=== PATIENT | female | born 1985 | race Caucasian/White ===

== ENCOUNTER 2019-11-28 17:30 | Emergency (ER) | payer OTHER, SELFPAY ==
[2019-11-28 17:45] VITALS: BP 98/62; PULSE 75; RESP 18; TEMP 37.4; O2SAT 100
--- NOTE | 2019-11-28 18:02 | ED.URI ---
HPI - URI/Sore Throat General Chief Complaint: Upper Respiratory Infection Stated Complaint: sore throat/fever Time Seen by Provider: 11/28/19 18:02 Source: patient and RN notes reviewed Mode of arrival: ambulatory Limitations: no limitations History of Present Illness HPI Narrative: 34 year old female who presents to [facility] care with complaints of sore throat and fevers for the past 2 days. Patient states that she has had low grade temperature denies any chills or sweats, denies any ear pain, acute cough or any shortness of breath. Patient states that she has felt extra tired today but denies any headaches or body aches. MD elicited complaint: fever (low grade) and sore throat Pertinent past history: other (previous history of strep) Onset (ago): day(s) (2) Consistency: constant Severity: moderate Pain scale (0-10): 6 Description of mucous: clear Able to tolerate fluids by mouth: Yes Exacerbating factors: swallowing Relieving factors: nothing Associated symptoms: fever (low grade), rhinorrhea, nasal congestion and sore throat Treatments prior to arrival: ibuprofen Related Data Home Medications Medication Instructions Recorded Confirmed No Home Medications 11/28/19 11/28/19 Allergies Allergy/AdvReac Type Severity Reaction Status Date / Time No Known Allergies Allergy Verified 11/28/19 17:35 Review of Systems Review of Systems: Narrative: CONSTITUTIONAL: Low-grade fever, chills, or sweats. EYES: Denies visual changes, redness, or discharge. ENT: Reports minimal rhinorrhea, congestion, sore throat, no otalgia. CARDIOVASCULAR: Denies chest pain, palpitations, or edema. RESPIRATORY: Denies cough or dyspnea. GASTROINTESTINAL: Denies abdominal pain, nausea, vomiting, or diarrhea. GENITOURINARY: Denies dysuria or hematuria. SKIN: Denies rash or itching. MUSCULOSKELETAL: Denies back pain, joint pain, or myalgia. NEUROLOGIC: Denies headache, numbness, or weakness. PSYCHIATRIC: Denies anxiety or depression. All systems reviewed & are unremarkable except as noted in HPI and below PMFSH Past Medical History Medical History (Updated 11/28/19 @ 18:20 by Catherine Dimas NP) Depression Strep pharyngitis Social History Social History (Updated 11/28/19 @ 18:20 by Catherine L. Judie, PHYSIOTHERAPY ASSISTANT) Smoking status: Never smoker Living arrangements: with family Gender identity (if verbalized by the patient): Female Comments At time of signature, agree with nursing past medical, social history. There is no relevant family history pertinent to the presenting complaint Exam Narrative: Exam Narrative: GENERAL: Well-appearing, well-nourished, and in no acute distress. HEAD: Normocephalic, atraumatic. EYES: PERRLA and EOMI. ENT: Nares clear, no rhinorrhea or epistaxis. Mucous membranes moist.TM's normal with good light reflex, throat red, no exudate or lesions, no tonsil enlargement. NECK: Supple.no lymphadenopathy CHEST: Clear to auscultation. No respiratory distress.SAO2 100% HEART: Regular rate and rhythm. No murmur heard. Normal peripheral pulses. ABDOMEN: Soft, nontender, nondistended, normal active bowel sounds. EXTREMITIES: Normal range of motion. No edema. SKIN: Warm, dry, no rash. NEURO: No focal deficits. Alert and oriented x3. Course Vital Signs Vital signs: Vital Signs Temperature 37.4 C 11/28/19 17:45 Pulse Rate 75 11/28/19 17:45 Respiratory Rate 18 11/28/19 17:45 Blood Pressure 98/62 L 11/28/19 17:45 Pulse Oximetry 100 11/28/19 17:45 Temperature 37.4 C 11/28/19 17:45 Pulse Rate 75 11/28/19 17:45 Respiratory Rate 18 11/28/19 17:45 Blood Pressure 98/62 L 11/28/19 17:45 Pulse Oximetry 100 11/28/19 17:45 MDM - URI/Sore Throat Differential Diagnosis Differential diagnosis: Likely upper respiratory infection, viral infection and pharyngitis Medical Records Attestation: I reviewed the patient's medical records. Lab Data Attestation: I reviewed the patient's lab results.
== END 2019-11-28 18:17 | disposition home or self-care (01) ==
PROVIDERS: Emergency Provider Registered Nurse
DX: J02.9 Acute pharyngitis, unspecified (principal); J06.9 Acute upper respiratory infection, unspecified
CPT/HCPCS: 87081; 87880; 99213; G0463

== ENCOUNTER 2021-05-21 12:36 | Emergency (ER) | payer OTHER, SELFPAY ==
[2021-05-21 12:51] VITALS: BP 103/59; PULSE 80; RESP 18; TEMP 37.1; O2SAT 98
--- NOTE | 2021-05-21 13:06 | ED.GENADULT ---
HPI - General Adult General Chief complaint: Ear Stated complaint: ear Time Seen by Provider: 05/21/21 13:07 Source: patient and RN notes reviewed Mode of arrival: ambulatory Limitations: no limitations History of Present Illness HPI narrative: 36-year-old female presents with complaints of right otalgia, being clogged, having a sense of fullness, and decreased hearing for the past 7 days. ?Monica reports increasing symptoms over the past 24 hours. [place] oil mixed with water and peroxide without relief. ?Denies swimming or getting water into the ear. ?Denies URI symptoms. ?No high fevers. ?Denies injury to the ear. ?No nasal drainage and congestion. ?Denies nausea, vomiting, tinnitus, and dizziness. ?LMP unknown due to IUD in place. ?Remains active. ?The patient reports she was diagnosed with COVID-01 September 2020. ?The patient reports she is not waiting for the results of a COVID-19 lab test. The patient reports she does not have chills, weakness, or fatigue. ?The patient reports she does not have a new or worsening cough or shortness of breath. ?Denies chest pain. ?The patient reports she does not have any rhinorrhea, congestion, loss of taste or smell, sore throat, abdominal pain, and diarrhea. ?Tolerating po intake well. ?Denies recent traveling. ?Denies concerns for COVID-19 or exposures. ?At this time, the patient is not suspected of having COVID-19. Some parts of this dictation were generated by voice recognition software and may contain typographical and/or grammatical inaccuracies. Related Data Home Medications Medication Instructions Recorded Confirmed ciprofloxacin HCl 500 mg PO BID 05/21/21 05/21/21 Allergies Allergy/AdvReac Type Severity Reaction Status Date / Time No Known Allergies Allergy Verified 05/21/21 13:13 Review of Systems Review of Systems: CONSTITUTIONAL: Denies fever, chills, sweats. EYES: Denies visual changes, redness, discharge. ENT: Denies rhinorrhea, congestion, sore throat, ear drainage, itching. Complains of right otalgia, being clogged, having a sense of fullness, and decreased hearing. CARDIOVASCULAR: Denies chest pain, palpitations, edema. RESPIRATORY: Denies dyspnea, wheezing, cough. GASTROINTESTINAL: Denies abdominal pain, nausea, vomiting, diarrhea. SKIN: Denies rash or itching. MUSCULOSKELETAL: Denies acute back pain, joint pain, or myalgia. NEUROLOGIC: Denies numbness or focal weakness. PSYCHIATRIC: Denies anxiety or depression. All systems reviewed & are unremarkable except as noted in HPI and below PMFSH Past Medical History Medical History (Updated 05/25/21 @ 17:16 by KERRI Rodriguez) COVID-19 08/2020 Depression Strep pharyngitis Surgical History Surgical History (Updated 05/25/21 @ 17:16 by KERRI Rodriguez) No significant past surgical history Family History Family History (Updated 05/25/21 @ 17:16 by KERRI Rodriguez) Daughter Alive and well Mother Alive and well Social History Social History (Updated 05/25/21 @ 17:17 by KERRI Rodriguez) Smoking status: Never smoker Tobacco type: cigarettes Second hand tobacco smoke exposure: No Alcohol intake: current Substance use: never Substance use type: does not use Living arrangements: with family Occupation/Education: occupation Gender identity (if verbalized by the patient): Female Sexual Orientation (if Verbalized by the Patient): Straight or Heterosexual Comments At time of signature, I have reviewed and agree with the nursing past medical, surgical, social, and family history. Please see the nursing chart for further information. There is no relevant family history pertinent to the presenting complaint. Exam Narrative: GENERAL: This is a well-nourished, well-developed patient, in no apparent distress. Talks in full sentences and ambulates with steady gait without dyspnea HEAD: Normocephalic, atraumatic. EYES: PERRL. Sclera clear/white. Vision is gr
== END 2021-05-21 13:38 | disposition home or self-care (01) ==
PROVIDERS: Emergency Provider Nurse Practitioner Family; PCP Internal Medicine
DX: H61.21 Impacted cerumen, right ear (principal)
CPT/HCPCS: 69209; 99212; G0463

== ENCOUNTER → 2022-01-23 01:36 | Outpatient (CLI) | payer OTHER, SELFPAY ==
[2022-01-23 11:18] LABS: SARS-CoV-2 RNA PCR Negative
== END ==
PROVIDERS: PCP Internal Medicine; Visit Provider Obstetrics & Gynecology Gynecologic Oncology
DX: Z01.812 Encounter for preprocedural laboratory examination (principal); Z20.822 Contact with and (suspected) exposure to COVID-19
CPT/HCPCS: C9803; U0003; U0005

== ENCOUNTER 2022-01-23 09:08 | Outpatient (CLI) | payer OTHER, SELFPAY ==
[2022-01-23 09:57] LABS: Hematocrit 40.4 % (37.0-47.0); Hemoglobin 13.2 g/dL (12.0-15.0); Mean Corpuscular HGB Conc 32.7 g/dl (32-36); Mean Corpuscular Volume 91.8 fl (80-100); Mean Platelet Volume 9.8 fl (7.4-10.4); Platelet Count Result 231 k/mm3 (150-375); Red Cell Distribution Width 13.8 % (11.5-14.5); White Blood Count 7.5 K/mm3 (4.5-10.0)
== END 2022-01-23 09:09 | disposition home or self-care (01) ==
LOC: ANHSURGERY 09:13
PROVIDERS: PCP Internal Medicine; Visit Provider Obstetrics & Gynecology Gynecologic Oncology
DX: N92.0 Excessive and frequent menstruation with regular cycle (principal); Z01.818 Encounter for other preprocedural examination
CPT/HCPCS: 36415; 85027; 86850; 86900; 86901

== ENCOUNTER 2022-01-26 00:49 | Day surgery (SDC) | payer OTHER, SELFPAY ==
[2022-01-22 12:00] VITALS: BMI 21.1
--- NOTE | 2022-01-22 12:09 | PC.NURSE ---
Report to the Outpatient Waiting Room, entrance under the green pavilion located off [facility], at time 10:00 on date 01/26/22. OR Time: 12:00. - You and your visitor will be asked a series of questions to screen for COVID 19 for your protection. - A mask is required within the hospital. One visitor will be allowed to accompany the patient into the hospital. Patients visitor will be instructed to remain with patient at all times or leave the building. We will allow the visitor to come back to the postoperative area when patient is ready. Preoperative COVID Testing Requirements: COVID TEST 01/23 AT 9:10 No COVID Test needed if: (proof is required; if not received patient will have Rapid Test prior to entry) - Patient has received COVID Vaccine at least 14 days prior to procedure date or - Patient has positive COVID test result within last 90 days of surgery date. COVID Test needed if above criteria is not met If not COVID vaccinated a COVID test must be conducted within 72 hours of surgery and patient is asked to isolate self from time of testing until procedure. You will go to the [facility] for your COVID testing. The [facility] site is located at the corner of [address] [facility]. You will only be called if COVID results are positive and your surgeon may reschedule your elective surgery date. Patients may have clear liquids (water, carbonated beverages, clear teas, apple juice) until 3 hours prior to surgery (9:00) with a maximum of 20 ounces. - No food from midnight until time of surgery Take the following medications with a SIP of water the morning of surgery: BUPROPION Medications to discontinue per physician: N/A Date to take last dose: N/A Please no make-up, nail wallisian, hairspray, perfume, deodorant, or body powder the day of surgery. No jewelry (including any body piercings) or valuables the day of surgery, leave them at home. Please take a shower or bath the night before, or the morning of, surgery with an antibacterial soap. Wear comfortable, loose fitting clothing. - Jewelry must be removed prior to entering the operating room. Rings and piercings that are not removed may be cut off. - The hospital will not accept responsibility for valuables. - Please leave all valuables, including medications, at home the day of surgery. If you are going home after surgery, a licensed power screwdriver operator must drive you home. - NO public transportation without another adult. - We recommend that an adult stay with you for 24 hours following discharge. - We also recommend that you do not drive, make important decision, drink alcoholic beverages, or take any drugs that were not prescribed by your health care provider for at least 24 hours after your discharge time. Follow any additional instructions given to you from your surgeon. Telephone instructions given to KHOI HACKETT and asked if any additional questions and then verbalized understanding. Patient advised to call surgeon office or pre surgery nurse liaison [phone] if any additional questions.
[2022-01-26] VITALS (9 sets, daily range): BP systolic 91–111; BP diastolic 58–65; PULSE 55–87; RESP 11–16; TEMP 36.3–37.2; O2SAT 94–100
--- NOTE | 2022-01-26 10:10 | WPDANESEPPF ---
Anes - Initial Pre Proc Eval Procedure: Operation Date: 01/26/22 12:15 Proposed Procedures p Diagnostic Laparoscopy, Bilateral Salpingectomy, Removal Intra Uterine Device, Hysteroscopy Dilatation and Curettage, Novasure Endometrial Ablation, Cervical Polypectomy, Possible Myosure - Gina Garcia DO Date/Time: 01/26/22 10:10 Surgeon: Gina Garcia DO Pre Op Diagnosis: desire sterilization, cervical polyp, menorrhaghia Patient Data Age: 36 Gender: F Height: 1.7 m Weight: 61.24 kg Allergies Allergy/AdvReac Type Severity Reaction Status Date / Time No Known Allergies Allergy Verified 01/22/22 11:59 Home Medications Medication Instructions Recorded Confirmed Type bupropion HCl 300 mg PO DAILY 01/22/22 01/22/22 History Results Review: All pre-operative results and documents have been reviewed as part of the pre-operative evaluation. [facility] Past Medical History Medical History (Updated 05/25/21 @ 17:16 by KERRI Rodriguez) COVID-19 08/2020 Depression Strep pharyngitis Surgical History Surgical History (Updated 05/25/21 @ 17:16 by KERRI Rodriguez) No significant past surgical history Family History Family History (Updated 05/25/21 @ 17:16 by KERRI Rodriguez) Daughter Alive and well Mother Alive and well Social History Social History (Updated 05/25/21 @ 17:17 by KERRI Rodriguez) Smoking status: Never smoker Tobacco type: cigarettes Second hand tobacco smoke exposure: No Alcohol intake: current Alcohol use details: 1/MONTH Substance use: never Substance use type: does not use Living arrangements: with family Gender identity (if verbalized by the patient): Female Sexual Orientation (if Verbalized by the Patient): Straight or Heterosexual Spiritual care concerns: No Anes - Eval Final PreProcedure Day of Procedure 01/26/22 10:10 Results Review: All pre-operative results and documents have been reviewed as part of the pre-operative evaluation. Informed Consent: The patient's anesthetic plan and its attendant risks and benefits were discussed with the patient/family/POA. Questions were solicited and answers provided to the satisfaction of the patient/family/POA.
[2022-01-26] MEDS: ACETAMINOPHEN 500 MG TABLET 1000 MG PO (11:08)
[2022-01-26] MEDS: GABAPENTIN 300 MG CAPSULE PO (11:08)
[2022-01-26] MEDS: LACTATED RINGERS 1,000 ML 30 ML IV CONT (11:24)
--- NOTE | 2022-01-26 11:49 | PM.IMHP ---
H&P: HPI History of Present Illness Date/Time: 01/26/22 11:49 Chief Complaint: I'm here for my surgery Narrative: She presents for diagnostic lap, bilateral salpingectomy, cervical polypectomy, hysteroscopy, D&C and ablation due to menorrhagia, desires permanent sterilization and persistent postcoital spotting likely secondary to endocervical polyp. Review of Systems Review of Systems: All systems reviewed & are unremarkable except as noted in HPI and below PMFSH Past Medical History Medical History (Updated 01/26/22 @ 11:51 by Gina Garcia, DO) COVID-19 08/2020 Depression Strep pharyngitis Surgical History Surgical History (Updated 05/25/21 @ 17:16 by KERRI Rodriguez) No significant past surgical history Family History Family History (Updated 05/25/21 @ 17:16 by KERRI Rodriguez) Daughter Alive and well Mother Alive and well Social History Social History (Updated 05/25/21 @ 17:17 by KERRI Rodriguez) Smoking status: Never smoker Tobacco type: cigarettes Second hand tobacco smoke exposure: No Alcohol intake: current Alcohol use details: 1/MONTH Substance use: never Substance use type: does not use Living arrangements: with family Gender identity (if verbalized by the patient): Female Sexual Orientation (if Verbalized by the Patient): Straight or Heterosexual Spiritual care concerns: No Meds Home Medications and Allergies Home Medications Medication Instructions Recorded Confirmed Type bupropion HCl 300 mg PO DAILY 01/22/22 01/26/22 History Allergies Allergy/AdvReac Type Severity Reaction Status Date / Time No Known Allergies Allergy Verified 01/26/22 11:00 Vital Signs Vital Signs - 24 hr 01/26/22 10:09 Temperature 37.2 C Pulse Rate 72 Respiratory Rate 16 Blood Pressure 95/63 L Pulse Oximetry 100 Exam Const: General: no acute distress Eyes: General: appearance normal, both eyes and all related structures Resp: Auscultation: clear to auscultation bilaterally Cardio: Rate: regular rate Rhythm: regular rhythm GI: GI Palp: Yes Soft to palpation Percussion: Yes normal to percussion Auscultation: normal bowel sounds Skin: General skin exam: normal color and no rashes or lesions noted Neuro: General: gait normal Cognition (Neuro): normal cognition Speech: normal speech Psych: Mental Status: mental status grossly normal Affect: normal affect Assessment and Plan Assessment and plan (1) Menorrhagia: Code(s): N92.0 - Excessive and frequent menstruation with regular cycle Status: Acute (2) Sterilization: Code(s): Z30.2 - Encounter for sterilization Status: Acute (3) Dysmenorrhea: Code(s): N94.6 - Dysmenorrhea, unspecified Status: Acute (4) Postcoital bleeding: Code(s): N93.0 - Postcoital and contact bleeding Status: Acute Additional Plan Diagnostic lap, bilateral sapingectomy, hysteroscopy, D&C, polypectomy, novasure ablation. Removal of Mirena IUD
--- NOTE | 2022-01-26 11:52 | WPDHPUPDATE1 ---
History and Physical Update Update Date/Time: 01/26/22 11:52 History and Physical has been reviewed, including an updated exam of the patient. There are NO changes in the patient's condition. Risks, benefits, and alternatives have been discussed and questions answered. Patient agrees to proceed with procedure.
--- NOTE | 2022-01-26 12:00 | P.PNAN_ITS ---
Anes - Initial Pre Proc Eval Procedure: Operation Date: 01/26/22 12:15 Proposed Procedures p Diagnostic Laparoscopy, Bilateral Salpingectomy, Removal Intra Uterine Device, Hysteroscopy Dilatation and Curettage, Novasure Endometrial Ablation, Cervical Polypectomy, Possible Myosure - Gina Garcia DO Date/Time: 01/26/22 12:00 Surgeon: Gina Garcia DO Pre Op Diagnosis: desire sterilization, cervical polyp, menorrhaghia Patient Data Age: 36 Gender: F Height: 1.7 m Weight: 62.4 kg Last Vital Signs Temp 37.2 C 01/26/22 10:09 Pulse 72 01/26/22 10:09 Resp 16 01/26/22 10:09 BP 95/63 L 01/26/22 10:09 Pulse Ox 100 01/26/22 10:09 Allergies Allergy/AdvReac Type Severity Reaction Status Date / Time No Known Allergies Allergy Verified 01/26/22 11:00 Home Medications Medication Instructions Recorded Confirmed Type bupropion HCl 300 mg PO DAILY 01/22/22 01/26/22 History Patient hx anesthesia problems: none Family hx anesthesia problems: none Results Review: All pre-operative results and documents have been reviewed as part of the pre-operative evaluation. [facility] Past Medical History Medical History (Updated 01/26/22 @ 11:51 by Gina Garcia DO) COVID-19 08/2020 Depression Strep pharyngitis Surgical History Surgical History (Updated 05/25/21 @ 17:16 by KERRI Rodriguez) No significant past surgical history Family History Family History (Updated 05/25/21 @ 17:16 by KERRI Rodriguez) Daughter Alive and well Mother Alive and well Social History Social History (Updated 05/25/21 @ 17:17 by KERRI Rodriguez) Smoking status: Never smoker Tobacco type: cigarettes Second hand tobacco smoke exposure: No Alcohol intake: current Alcohol use details: 1/MONTH Substance use: never Substance use type: does not use Living arrangements: with family Gender identity (if verbalized by the patient): Female Sexual Orientation (if Verbalized by the Patient): Straight or Heterosexual Spiritual care concerns: No Anes - Eval Final PreProcedure Day of Procedure 01/26/22 12:00 Patient weight: normal Heart: regular rate and rhythm Lungs: clear to auscultation and normal air movement Airway: Mallampati scale class II Neurological: alert and oriented Last oral intake: >/= 8 hours ASA classification: II Emergent: no Anesthetic plan: proceed Anesthesia type and monitoring: general ETT and standard monitoring Results Review: All pre-operative results and documents have been reviewed as part of the pre-operative evaluation. Informed Consent: The patient's anesthetic plan and its attendant risks and benefits were discussed with the patient/family/POA. Questions were solicited and answers provided to the satisfaction of the patient/family/POA.
--- NOTE | 2022-01-26 14:17 | P.OP_ITS ---
Procedure Note - Detailed Date of Procedure 01/26/22 Pre-op Diagnosis desire sterilization, postcoital bleeding, menorrhaghia, dysmenorrhea Post-op Diagnosis Same Procedure Performed Diagnostic laparoscopy, bilateral salpingectomy, hysteroscopy with dilation and curettage. NovaSure ablation. Removal of Mirena IUD Surgeon Gina Garcia DO Cartographic Engineer Gricelda Anesthesia General Indications Desires sterilization, dysmenorrhea, menorrhagia, postcoital bleeding Findings Normal appearing vulva and vaginal canal. Normal appearing cervix. Within the endocervical canal there was no endocervical polyp as previously suspected. The endometrial cavity was without lesions and was unremarkable. Both tubal ostia were visualized and appeared normal Description of Procedure The patient was taken to the operating room where she was placed under general anesthesia. She was prepped and draped in the normal sterile fashion in a dorsal lithotomy position. No preoperative antibiotics were indicated. A time- out was performed. A speculum was placed in the vagina and the cervix was visualized. The anterior lip was grasped with a long Allis clamp. The cervix was sequentially dilated up to accommodate the hysteroscope. The strings of the IUD were seen and were grasped with a ring forceps. IUD removed intact. The hysteroscope was then introduced and a survey of the endometrial cavity revealed the above-mentioned findings. Measurements of the endometrial cavity were taken. The hysteroscope was removed and a thorough curettage of the cavity was performed. The specimen was handed off for pathology. The NovaSure device was then introduced. Cavity length was 5 cm, width was 2.6 cm. The device is activated for 87 seconds at a power of 72 sinclair. The device was then retracted and allowed to cool. The acorn uterine manipulator was then placed. Gloves were changed and attention was then turned to the abdomen. The patient was then placed in low lithotomy position, the skin below the umbilicus was grasped with 2 penetrating towel clamps and the area was injected with local. An incision was made and the camera was introduced and a 5 mm trocar under direct visualization. The abdomen was brought to a filling pressure of 15 mmHg. Survey of the abdomen revealed no evidence of bowel or vascular injury upon entry. The patient was then placed in steep Trendelenburg position. Additional ports in the right and left lower quadrants were identified, injected, incised and 5 mm trocars introduced under direct visualization. Uterus was then elevated and deviated to the left the right tube was grasped and elevated. The tube was cauterized and transected off using LigaSure. The tube was then handed off through the assist port. Procedure was repeated in identical fashion on the left side. Survey of both pedicles revealed excellent hemostasis. The bowel liver gallbladder and other pelvic areas appeared grossly normal. Of note the appendix was serpentine in nature. The instruments removed and the CO2 gas was allowed to escape from the abdomen. The trocars were removed. The incisions were closed with subcuticular 4-0 Monocryl and covered with Steri-Strips. Patient was taken to the recovery room in stable condition all instruments and sponge counts were correct at the conclusion of the procedure. Estimated Blood Loss 5 IV Fluids 500 Urine Output 50 Drains No Packing No Pathology Yes Complications No immediate complications Condition Stable Disposition PACU
[2022-01-26] MEDS: fentaNYL CITRATE INJ (*CRX) 100 MCG/2 ML VIAL 25 MCG IV PUSH ×4 (14:48→14:58)
[2022-01-26] MEDS: oxyCODONE HCL (*CRX) 5 MG TAB IR PO (15:56)
== END 2022-01-26 16:40 | disposition home or self-care (01) ==
PROVIDERS: PCP Internal Medicine; Visit Provider Obstetrics & Gynecology Gynecologic Oncology
PROC: 0UDB8ZZ Extraction of Endometrium, Via Natural or Artificial Opening Endoscopic (ICD-10-PCS; CPT 58558; principal; 2022-01-26 12:15)
DX: Z30.2 Encounter for sterilization (principal); Z30.432 Encounter for removal of intrauterine contraceptive device; N94.6 Dysmenorrhea, unspecified; N92.0 Excessive and frequent menstruation with regular cycle; N93.0 Postcoital and contact bleeding; Z86.16 Personal history of COVID-19; F32.9 Major depressive disorder, single episode, unspecified
CPT/HCPCS: 58563; 58301; 58661; 36415; 85027; 86850; 86900; 86901; 88302; 88305; A9270; C9803; J1100; J1200; J2001; J2250; J2405; J2704; J2710; J3010; J7030; J7120; U0003; U0005